=== PATIENT | male | born 1935 | race Two or more races ===

== ENCOUNTER 2022-10-25 05:25 | Day surgery (SDC) | payer OTHER ==
[~2022-10-25] VITALS: Ht 172.7 cm; Wt 70.8 kg
[~2022-10-25 05:25] MED LIST: CANDESARTAN-HC1 EAC1 PO; LIPITOR PO
== END 2022-10-25 14:00 | disposition home or self-care (01) ==
LOC: CIR.AMB 05:25
PROVIDERS: ATTEND Otolaryngology Otology & Neurotology
DX: H72.92 Unspecified perforation of tympanic membrane, left ear (principal); D68.9 Coagulation defect, unspecified; Z03.818 Encounter for observation for suspected exposure to other biological agents ruled out; H66.92 Otitis media, unspecified, left ear; Z88.6 Allergy status to analgesic agent; E03.9 Hypothyroidism, unspecified